=== PATIENT | male | born 1945 | race Native Hawaiian/Other Pacific Islander ===

== ENCOUNTER 2017-02-02 07:00 | Inpatient (IN) | payer MEDICARE ==
[2017-02-01 09:39] VITALS: BMI 24.9
[2017-02-02] MEDS ORDERED: Sodium Chloride 0.9% 20 ML IV ONE (08:17)
[2017-02-02] MEDS ORDERED: Morphine 1 mg/ml preservative-free Inj(Duramorph) ONE (08:17)
[2017-02-02] MEDS ORDERED: Bupivacaine 0.5% Inj(30mL) ONE (08:17)
[2017-02-02] MEDS ORDERED: EPINEPHrine 1 mg/ml (1:1000) Inj ONE (08:17)
[2017-02-02] MEDS ORDERED: Propofol 10 mg/ml Inj (20 ML) ONE ×2 (08:37→11:52)
[2017-02-02] MEDS ORDERED: Succinylcholine 200 mg/10 ml Inj IV ONE (08:38)
[2017-02-02] MEDS ORDERED: Vecuronium 10 mg Inj ONE (08:38)
[2017-02-02] MEDS ORDERED: Midazolam 2 MG/2 ML VIAL ONE (08:38)
[2017-02-02] MEDS ORDERED: ePHEDrine 50 mg/ml Inj ONE (08:38)
[2017-02-02] MEDS ORDERED: Phenylephrine 10 mg/ml Inj ONE (08:40)
[2017-02-02] MEDS ORDERED: Lactated Ringer's 1,000 ML IV ONE ×3 (08:45→14:30)
[2017-02-02] MEDS ORDERED: Esmolol 100 mg/10ml Inj IV ONE (10:52)
[2017-02-02] MEDS ORDERED: EPINEPHrine 1 mg/ml (1:1000) Inj IV ONE ×2 (11:02→11:30)
[2017-02-02] MEDS ORDERED: Bupivacaine 0.5% 50 ML IJ ONE ×2 (11:02→11:30)
[2017-02-02] MEDS ORDERED: Morphine 5 mg/10 ml preservative-free Inj(Duramorph) INJ ONE ×2 (11:02→11:30)
[2017-02-02] MEDS ORDERED: Sodium Chloride 0.9% Inj (10mL) IV ONE ×2 (11:03→11:30)
[2017-02-02] MEDS ORDERED: Neostigmine Methylsulfate 3mg/3ml Syringe IV ONE (11:33)
--- NOTE | 2017-02-02 12:17 | PCM.SURG1 ---
Surgeon's Initial Post Op Note - Surgeon's Notes Surgeon: René Haque MD Environmental Services Worker: Kevon Jeff PA-C, Joselin CALIX Type of Anesthesia: General Endo Pre-Operative Diagnosis: Right Knee Osteoarthritis Operative Findings: See op report Post-Operative Diagnosis: Same as pre-op dx Operation Performed: Right TKR Specimen/Specimens Removed: Right knee bone and soft tissue Estimated Blood Loss: EBL {In ML}: 100 Date of Surgery/Procedure: 02/02/17 Time of Surgery/Procedure: 10:30
[2017-02-02] MEDS ORDERED: HYDROmorphone 0.5 mg/0.5 ml ISec ONE (12:32)
[2017-02-02] MEDS ORDERED: HYDROmorphone 0.5 mg/0.5 ml ISec IVP PRN (12:33)
[2017-02-02] MEDS ORDERED: Lactated Ringer's 1,000 ML IV SCH (12:33)
[2017-02-02] MEDS ORDERED: Oxycodone/Acetaminophen 5/325 mg Tab PO PRN ×2 (12:38→14:41)
--- NOTE | 2017-02-02 13:34 | RAD ---
PROCEDURE: Right Knee Radiographs. HISTORY: post op RTKR COMPARISON: None. FINDINGS: BONES: Right total knee replacement. Prosthesis intact and in grossly normal alignment. JOINTS: As above JOINT EFFUSION: None. OTHER FINDINGS: Postoperative changes in soft tissues about the knee. Anterior cutaneous paco. IMPRESSION: Right total knee replacement.
[2017-02-02] MEDS ORDERED: ceFAZolin 1 GM in Sodium Chloride 0.9% 100 ML IVPB ONE (18:30)
[2017-02-02] MEDS: Lactated Ringer's 1,000 ML IV SCH ×2 (18:36→23:00)
[2017-02-02] MEDS: oxyCODONE 10 mg ER Tab (oxyCONTIN) PO SCH (21:25)
[2017-02-03] MEDS ORDERED: ceFAZolin 1 GM in Sodium Chloride 0.9% 100 ML IVPB ONE (02:30)
[2017-02-03] MEDS: Lactated Ringer's 1,000 ML IV SCH ×2 (08:26→21:02)
[2017-02-03] MEDS: oxyCODONE 10 mg ER Tab (oxyCONTIN) PO SCH ×2 (08:29→20:58)
[2017-02-03] MEDS: Pantoprazole 40 mg EC Tab PO SCH (08:30)
[2017-02-03] MEDS ORDERED: Morphine 4 MG/ML VIAL IVP PRN (09:45)
[2017-02-03] MEDS ORDERED: Enoxaparin 30 mg Syringe SC SCH (10:00)
[2017-02-03 10:27] LABS: BASO % 0.2 % (0.0-2.0); EOS % 0.1 % (0.0-4.0); HEMOGLOBIN 10.9 g/dL (12.0-18.0); LYMPH # 0.6 K/uL (1.0-4.3); LYMPH % 7.5 % (20.0-40.0); MEAN CELL VOLUME 87.3 fl (80.0-94.0); MEAN CORPUSCULAR HEMOGLOBIN 29.5 pg (27.0-31.0); MEAN CORPUSCULAR HGB CONC 33.8 g/dL (33.0-37.0); MEAN PLATELET VOLUME 8.5 fl (7.2-11.7); MONO % 12.3 % (0.0-10.0); NEUT # 6.5 K/uL (1.8-7.0); NEUT % 79.9 % (50.0-75.0); NRBC % 0.1 % (0.0-0.0); PLATELET COUNT 171 K/uL (130-400); RED CELL DISTRIBUTION WIDTH 14.4 % (11.5-14.5); WHITE BLOOD COUNT 8.1 K/uL (4.8-10.8)
[2017-02-03 10:38] LABS: BLOOD UREA NITROGEN 9 mg/dl (9-20); CALCIUM 8.7 mg/dL (8.4-10.2); GFR AFRICAN-AMERICAN > 60; GFR NON-AFRICAN AMERICAN > 60
--- NOTE | 2017-02-03 10:40 | CP.PCM.PN ---
Subjective - Date & Time of Evaluation Date of Evaluation: 02/03/17 Time of Evaluation: 08:30 - Subjective Subjective: S/P RTKR POD#1 Pt seen and examined at bedside, comfortable in bed Pt denies any current c/o right knee pain, currently well controlled with pain meds Pt denies SOB, chest pain, N/V/D, numbness/tingling of RLE Objective - Vital Signs/Intake and Output Vital Signs (last 24 hours): Temp Pulse Resp BP Pulse Ox 99 F 87 20 137/77 98 02/03/17 08:10 02/03/17 08:10 02/03/17 08:10 02/03/17 08:10 02/03/17 08:10 - Medications Medications: Current Medications Aspirin (Aspirin) 325 mg PO BID [facility] Last Admin: 02/03/17 10:12 Dose: 325 mg Celecoxib (Celebrex) 200 mg PO Q12 [facility] Last Admin: 02/03/17 08:26 Dose: 200 mg Lactated Ringer's (Lactated Ringer's) 1,000 mls @ 100 mls/hr IV .Q10H [facility] Last Admin: 02/03/17 08:26 Dose: Not Given Ketorolac Tromethamine (Toradol) 15 mg IM Q8 [facility] Stop: 02/04/17 09:01 Last Admin: 02/03/17 08:26 Dose: Not Given Morphine Sulfate (Morphine) 2 mg IVP Q4 PRN PRN Reason: Pain, severe (8-10) Ondansetron HCl (Zofran Inj) 4 mg IVP Q6 PRN PRN Reason: Nausea/Vomiting Oxycodone HCl (Oxycontin Extended Release Tab) 10 mg PO Q12 [facility] Stop: 02/16/17 21:01 Last Admin: 02/03/17 08:29 Dose: 10 mg Oxycodone/Acetaminophen (Percocet 5/325 Mg Tab) 2 tab PO Q4 PRN PRN Reason: Pain, moderate (4-7) Stop: 02/05/17 12:39 Oxycodone/Acetaminophen (Percocet 5/325 Mg Tab) 1 tab PO Q4 PRN PRN Reason: pain 4-6 Stop: 02/05/17 14:42 Pantoprazole Sodium (Protonix Ec Tab) 40 mg PO DAILY [facility] Last Admin: 02/03/17 08:30 Dose: 40 mg - Labs Labs: 02/03/17 09:50 - Constitutional Appears: Well, No Acute Distress - Respiratory Exam Respiratory Exam: Clear to Ausculation Bilateral, NORMAL BREATHING PATTERN - Cardiovascular Exam Cardiovascular Exam: REGULAR RHYTHM, RRR - Extremities Exam Additional comments: RLE: Knee dresisng C/D/I Calves soft and nontender b/l N/V intact distally Distal pulses wnl Assessment and Plan - Assessment and Plan (Free Text) Assessment: 71 yo M s/p RTKR POD#1 Plan: 71 yo M s/p RTKR POD#1 Pain Control DVT ppx- continue aspirin 325mg BID [facility] Spirometer PT/OT- WBAT RLE F/U labs Discussed with Dr. Haque
--- NOTE | 2017-02-03 11:35 | CP.PCM.HP ---
History of Present Illness - History of Present Illness History of Present Illness: 71 y/o male with a PMHx of osteoarthritis. Admitted for RTKR surgery. S/P RTKR POD #1. Denies PMHx of HTN, DM, Asthma, COPD, CAD, cancer. No medical complaints at this time. Denies fever/chills, headaches, visual changes, CP/SOB/ Palpitations, N/V/D/C, urinary symptoms. Denies BM today, reports +flatus, pain controlled. Present on Admission - Present on Admission Any Indicators Present on Admission: No Review of Systems - Constitutional Constitutional: As Per HPI Past Patient History - Past Medical History & Family History Past Medical History?: Yes - Past Social History Smoking Status: Never Smoked Alcohol: None Drugs: Denies Home Situation {Lives}: With Family Domestic Violence: Negative - CARDIAC Hx Cardiac Disorders: No - PULMONARY Hx Respiratory Disorders: No - NEUROLOGICAL Hx Neurological Disorder: No - HEENT Hx HEENT Problems: No - RENAL Hx Chronic Kidney Disease: No - ENDOCRINE/METABOLIC Hx Endocrine Disorders: No - HEMATOLOGICAL/ONCOLOGICAL Hx Blood Disorders: No - INTEGUMENTARY Hx Dermatological Problems: No - MUSCULOSKELETAL/RHEUMATOLOGICAL Hx Musculoskeletal Disorders: Yes Hx Arthritis: Yes Hx Osteoarthritis: Yes - GASTROINTESTINAL Hx Gastrointestinal Disorders: Yes Hx Ulcer: Yes - GENITOURINARY/GYNECOLOGICAL Hx Genitourinary Disorders: No - PSYCHIATRIC Hx Psychophysiologic Disorder: No - SURGICAL HISTORY Hx Surgeries: Yes Other/Comment: SPINE SX - ANESTHESIA Hx Anesthesia: Yes Hx Anesthesia Reactions: No Hx Malignant Hyperthermia: No Has any member of the family had a problem w/ anesthesia?: No Meds Allergies/Adverse Reactions: Allergies Allergy/AdvReac Type Severity Reaction Status Date / Time No Known Allergies Allergy Verified 02/02/17 07:25 Physical Exam - Constitutional Appears: Well, Non-toxic, No Acute Distress - Eye Exam Eye Exam: EOMI. absent: Conjunctival injection, Scleral icterus Pupil Exam: PERRL - ENT Exam ENT Exam: Mucous Membranes Moist - Neck Exam Neck exam: Positive for: Full Rom. Negative for: Lymphadenopathy, Tenderness - Respiratory Exam Respiratory Exam: Clear to Auscultation Bilateral, NORMAL BREATHING PATTERN. absent: Rales, Rhonchi, Wheezes - Cardiovascular Exam Cardiovascular Exam: REGULAR RHYTHM, RRR, +S1, +S2. absent: Tachycardia, Gallop , JVD, Rubs, Systolic Murmur - GI/Abdominal Exam GI & Abdominal Exam: Normal Bowel Sounds, Soft. absent: Diminished Bowel Sounds , Distended, Firm, Guarding, Hernia, Tenderness - Extremities Exam Extremities exam: Positive for: normal capillary refill, normal inspection, pedal pulses present. Negative for: calf tenderness, pedal edema Additional comments: right leg s/p TKR. Pedal pulses intact, normal cap refill, sensation and gross motor intact. Bandage clean and dry. - Back Exam Back exam: NORMAL INSPECTION. absent: CVA tenderness (L), CVA tenderness (R) - Neurological Exam Neurological exam: Alert, CN II-XII Intact, Oriented x3, Reflexes Normal - Psychiatric Exam Psychiatric exam: Normal Affect, Normal Mood - Skin Skin Exam: Dry, Intact Results - Vital Signs Recent Vital Signs: Last Vital Signs Temp 99 F 02/03/17 08:10 Pulse 87 02/03/17 08:10 Resp 20 02/03/17 08:10 BP 137/77 02/03/17 08:10 Pulse Ox 98 02/03/17 08:10 - Labs Result Diagrams: 02/03/17 09:50 02/03/17 09:50 Labs: Laboratory Results - last 24 hr 02/03/17 02/03/17 09:50 09:50 WBC 8.1 RBC 3.70 L Hgb 10.9 L Hct 32.3 L MCV 87.3 MCH 29.5 MCHC 33.8 RDW 14.4 Plt Count 171 MPV 8.5 Neut % (Auto) 79.9 H Lymph % (Auto) 7.5 L Jackson % (Auto) 12.3 H Eos % (Auto) 0.1 Baso % (Auto) 0.2 Neut # 6.5 Lymph # 0.6 L Jackson # 1.0 H Eos # 0.0 Baso # 0.0 Sodium 134 Potassium 4.3 Chloride 99 Carbon Dioxide 27 Anion Gap 12 BUN 9 Creatinine 0.9 Est GFR ( Amer) > 60 Est GFR (Non-Af Amer) > 60 Random Glucose 136 H Calcium 8.7 Assessment & Plan (1) Status post total knee replacement, right Assessment and Plan: POD#1 pain control physical therapy regular diet pt eval/tx for transfer to rehab Status: Acute Priority: Medium
[2017-02-03 11:49] LABS: BANDS 1 % (0-2); LYMPHOCYTE 9 % (20-50); MONOCYTE 15 % (0-10); NEUTROPHIL 72 % (42-75); REACTIVE LYMPHOCYTES 3 % (0-0); TOTAL CELLS COUNTED 100
[2017-02-03 11:50] LABS: HYPOCHROMIC SLIGHT; LARGE PLATELETS PRESENT; PLATELET ESTIMATE NORMAL (NORMAL)
[2017-02-04 05:26] LABS: BASO % 0.4 % (0.0-2.0); EOS # 0.3 K/uL (0.0-0.7); EOS % 2.9 % (0.0-4.0); HEMOGLOBIN 9.4 g/dL (12.0-18.0); LYMPH # 0.9 K/uL (1.0-4.3); LYMPH % 9.4 % (20.0-40.0); MEAN CELL VOLUME 87.2 fl (80.0-94.0); MEAN CORPUSCULAR HEMOGLOBIN 29.2 pg (27.0-31.0); MEAN CORPUSCULAR HGB CONC 33.5 g/dL (33.0-37.0); MEAN PLATELET VOLUME 8.7 fl (7.2-11.7); MONO # 1.1 K/uL (0.0-0.8); MONO % 12.1 % (0.0-10.0); NEUT # 7.1 K/uL (1.8-7.0); NEUT % 75.2 % (50.0-75.0); RBC 3.21 Mil/uL (4.40-5.90); RED CELL DISTRIBUTION WIDTH 14.7 % (11.5-14.5); WHITE BLOOD COUNT 9.4 K/uL (4.8-10.8)
[2017-02-04 05:31] LABS: BLOOD UREA NITROGEN 13 mg/dl (9-20); CALCIUM 8.6 mg/dL (8.4-10.2); GFR AFRICAN-AMERICAN > 60; GFR NON-AFRICAN AMERICAN 60
[2017-02-04 08:06] VITALS: BP 125/76; PULSE 69; RESP 20; TEMP 98.1; O2SAT 96
--- NOTE | 2017-02-04 08:30 | CP.PCM.PN ---
Subjective - Date & Time of Evaluation Date of Evaluation: 02/04/17 Time of Evaluation: 07:30 - Subjective Subjective: pt seen and examined at bedside. S/P TRKR POD#1. No acute events overnight. Lying in bed comfortably, NAD. Pain controlled with medications. Tolerating PO intake w/o issue. +flatus/-bm. Denies fever/chills, headaches, CP/SOB/ Palpitations, N/V/D, urinary symptoms, numbness/tingling. Objective - Vital Signs/Intake and Output Vital Signs (last 24 hours): Temp Pulse Resp BP Pulse Ox 98.1 F 69 20 125/76 96 02/04/17 08:05 02/04/17 08:05 02/04/17 08:05 02/04/17 08:05 02/04/17 08:05 - Medications Medications: Current Medications Aspirin (Aspirin) 325 mg PO BID [facility] Last Admin: 02/03/17 16:12 Dose: 325 mg Celecoxib (Celebrex) 200 mg PO Q12 [facility] Last Admin: 02/03/17 20:57 Dose: 200 mg Lactated Ringer's (Lactated Ringer's) 1,000 mls @ 100 mls/hr IV .Q10H [facility] Last Admin: 02/03/17 21:02 Dose: Not Given Ketorolac Tromethamine (Toradol) 15 mg IM Q8 [facility] Stop: 02/04/17 09:01 Last Admin: 02/04/17 01:37 Dose: Not Given Morphine Sulfate (Morphine) 2 mg IVP Q4 PRN PRN Reason: Pain, severe (8-10) Ondansetron HCl (Zofran Inj) 4 mg IVP Q6 PRN PRN Reason: Nausea/Vomiting Oxycodone HCl (Oxycontin Extended Release Tab) 10 mg PO Q12 [facility] Stop: 02/16/17 21:01 Last Admin: 02/03/17 20:58 Dose: 10 mg Oxycodone/Acetaminophen (Percocet 5/325 Mg Tab) 2 tab PO Q4 PRN PRN Reason: Pain, moderate (4-7) Stop: 02/05/17 12:39 Last Admin: 02/03/17 16:12 Dose: 2 tab Oxycodone/Acetaminophen (Percocet 5/325 Mg Tab) 1 tab PO Q4 PRN PRN Reason: pain 4-6 Stop: 02/05/17 14:42 Pantoprazole Sodium (Protonix Ec Tab) 40 mg PO DAILY [facility] Last Admin: 02/03/17 08:30 Dose: 40 mg - Labs Labs: 02/04/17 04:20 02/04/17 04:20 - Constitutional Appears: Well, Non-toxic, No Acute Distress - Eye Exam Eye Exam: EOMI Pupil Exam: PERRL - ENT Exam ENT Exam: Mucous Membranes Moist - Respiratory Exam Respiratory Exam: Clear to Ausculation Bilateral, NORMAL BREATHING PATTERN. absent: Rales, Rhonchi, Wheezes - Cardiovascular Exam Cardiovascular Exam: REGULAR RHYTHM, RRR, +S1, +S2. absent: Gallop, JVD, Rubs, Murmur - GI/Abdominal Exam GI & Abdominal Exam: Soft, Normal Bowel Sounds. absent: Distended, Firm, Guarding, Tenderness, Organomegaly, Rebound - Extremities Exam Extremities Exam: absent: Pedal Edema Additional comments: right knee s/p TKR. Dressing removed, moderate edema surrounding knee. Distal pulses intact, sensation intact. Mild tenderness to palpation. Wound site C/D/I. - Neurological Exam Neurological Exam: Alert, Awake, CN II-XII Intact, Oriented x3 - Psychiatric Exam Psychiatric exam: Normal Affect, Normal Mood Assessment and Plan (1) Status post total knee replacement, right Assessment & Plan: POD#1 continue current mangement with pain control and PT pt to be discharged to [facility] today for rehab Status: Acute (2) DVT prophylaxis Assessment & Plan: aspirin 325mg Status: Acute
[2017-02-04] MEDS: oxyCODONE 10 mg ER Tab (oxyCONTIN) PO SCH (08:42)
[2017-02-04] MEDS: Pantoprazole 40 mg EC Tab PO SCH (08:43)
--- NOTE | 2017-02-04 10:09 | CP.PCM.DIS ---
Provider - Provider Date of Admission: 02/02/17 12:43 Attending physician: Yosvany Dooley MD Primary care physician: Enmanuel Daniels MD Time Spent in preparation of Discharge (in minutes): 35 Diagnosis - Discharge Diagnosis (1) Status post total knee replacement, right Status: Acute Priority: Medium Hospital Course - Lab Results Lab Results: Most Recent Lab Values WBC 9.4 K/uL (4.8-10.8) 02/04/17 04:20 RBC 3.21 Mil/uL (4.40-5.90) L 02/04/17 04:20 Hgb 9.4 g/dL (12.0-18.0) L 02/04/17 04:20 Hct 28.0 % (35.0-51.0) L 02/04/17 04:20 MCV 87.2 fl (80.0-94.0) 02/04/17 04:20 MCH 29.2 pg (27.0-31.0) 02/04/17 04:20 MCHC 33.5 g/dL (33.0-37.0) 02/04/17 04:20 RDW 14.7 % (11.5-14.5) H 02/04/17 04:20 Plt Count 140 K/uL (130-400) 02/04/17 04:20 MPV 8.7 fl (7.2-11.7) 02/04/17 04:20 Neut % (Auto) 75.2 % (50.0-75.0) H 02/04/17 04:20 Lymph % (Auto) 9.4 % (20.0-40.0) L 02/04/17 04:20 Mckean % (Auto) 12.1 % (0.0-10.0) H 02/04/17 04:20 Eos % (Auto) 2.9 % (0.0-4.0) 02/04/17 04:20 Baso % (Auto) 0.4 % (0.0-2.0) 02/04/17 04:20 Neut # 7.1 K/uL (1.8-7.0) H 02/04/17 04:20 Lymph # 0.9 K/uL (1.0-4.3) L 02/04/17 04:20 Mckean # 1.1 K/uL (0.0-0.8) H 02/04/17 04:20 Eos # 0.3 K/uL (0.0-0.7) 02/04/17 04:20 Baso # 0.0 K/uL (0.0-0.2) 02/04/17 04:20 Neutrophils % (Manual) 72 % (42-75) 02/03/17 09:50 Band Neutrophils % 1 % (0-2) 02/03/17 09:50 Lymphocytes % (Manual) 9 % (20-50) L 02/03/17 09:50 Reactive Lymphs % 3 % (0-0) H 02/03/17 09:50 Monocytes % (Manual) 15 % (0-10) H 02/03/17 09:50 Platelet Estimate Normal (NORMAL) 02/03/17 09:50 Large Platelets Present 02/03/17 09:50 Hypochromasia (manual) Slight 02/03/17 09:50 Sodium 135 mmol/l (132-148) 02/04/17 04:20 Potassium 4.5 MMOL/L (3.6-5.0) 02/04/17 04:20 Chloride 100 mmol/L (98-107) 02/04/17 04:20 Carbon Dioxide 30 mmol/L (22-30) 02/04/17 04:20 Anion Gap 10 (10-20) 02/04/17 04:20 BUN 13 mg/dl (9-20) 02/04/17 04:20 Creatinine 1.2 mg/dL (0.8-1.5) 02/04/17 04:20 Est GFR ( Amer) > 60 02/04/17 04:20 Est GFR (Non-Af Amer) 60 02/04/17 04:20 Random Glucose 110 mg/dL (75-110) 02/04/17 04:20 Calcium 8.6 mg/dL (8.4-10.2) 02/04/17 04:20 Blood Type O POSITIVE 02/02/17 07:25 Blood Type Confirm O POSITIVE 02/02/17 08:36 Antibody Screen Negative 02/02/17 07:25 BBK History Checked No verified bt 02/02/17 07:25 - Hospital Course Hospital Course: 71 y/o male with a PMHx remarkable for Knee OA had elective RTKR. Pt tolerated the procedure well. Pt began PT in house. Pain was controlled with medications, tolerated PO intake w/o difficulty. After an uneventful hospital stay pt was discharged to [facility] in stable condition. Discharge Exam - Eye Exam Eye Exam: EOMI. absent: Conjunctival injection, Scleral icterus Pupil Exam: PERRL - ENT Exam ENT Exam: Mucous Membranes Moist - Neck Exam Neck exam: Normal Inspection - Respiratory Exam Respiratory Exam: Clear to PA & Lateral, NORMAL BREATHING PATTERN, UNREMARKABLE - Cardiovascular Exam Cardiovascular Exam: REGULAR RHYTHM, RRR, +S1, +S2. absent: JVD - GI/Abdominal Exam GI & Abdominal Exam: Normal Bowel Sounds, Soft, Unremarkable - Extremities Exam Extremities exam: normal inspection, pedal pulses present Additional comments: right knee: s/p TKR, edema, tenderness, decreased erythema. Wound site C/D/I. Pedal pulses intact, 2+ senstation and gross motor intact - Neurological Exam Neurological exam: Alert, CN II-XII Intact, Oriented x3, Reflexes Normal - Psychiatric Exam Psychiatric exam: Normal Affect, Normal Mood - Skin Skin Exam: Dry, Intact, Normal Color Discharge Plan - Follow Up Plan Condition: GOOD Disposition: HOME/ ROUTINE Referrals: Enmanuel Daniels MD [Primary Care Provider] -
--- NOTE | 2017-02-11 16:17 | OP ---
Date of Procedure: 02/02/17 ATTENDING MAT PUNCHER: LEIGH GARG MD: ANDRIY ZHOU PREOP DIAGNOSIS: RT KNEE OSTEOARHTRITIS POST OPERATIVE DIAGNOSIS: RT KNEE OSTEOARHTRITIS PROCEDURE: RT TOTAL KNEE REPLACEMENT IMPLANT SIZE 3 TIBIAL BASE PLATE, SIZE 3 FEMUR, 9 MM POLYETHYLENE INSERT, 32 MM PATELLA ANESTHESIA TYPE : GENERAL EBL: 50CC COMPLICATION: NONE HX: PT IS 71 Y/O MALE WITH PROGRESSIVE RT KNEE PAIN THAT HAS BEEN REFRACTORY TO EXTENSIVE RESERVICE MANAGEMENT ON PHYSICAL THERAPY AND CORTINSONE INJECTIONS. X- RAYS HAS SHOWN ADVANCED OSTEOARHTRITIS, PT WAS SEEKING A TOTAL KNEE REPLACEMENT. I HAD REVIEWED PT'S X-RAY AND HE WAS A CANDIDATE FOR TOTAL KNEE REPLACEMENT. I REVIEWED THE RISKS AND BENEFITS OF THE SURGERY WITH PATIENT IN DETAIL, THE RISK INCLUDED BUT NOT LIMITED TO BLEEDING, INFECTION, NERVE VESSEL DAMAGE, CONTINUED PAIN, NEED FOR FURTHER SURGERY, STIFFNESS AMONG OTHERS. PT FULLY UNDERSTOOD THE RISKS AND BENEFITS AND OPTED TO PROCEED WITH THE SURGERY. PROCEDURE: ON THE DAY OF THE SURGERY PT WAS ADMITTED TO PRE OP HOLDING AREA. IN LATERALITY SHE WAS COMPLETELY COVERING RT KNEE TO CORRECT OPERATIVE SITE. PT'S RT KNEE WAS MARKED AND FORM CONSENT WAS SIGNED. ONCE AGAIN EXPLAINING RISK AND BENEFITS OF THE SURGERY TO THE PT IN DETAIL. AFTERWARDS, PT WAS BROUGHT INTO OPERATING ROOM TABLE, HE WAS GIVEN GENERAL ANESTHESIA. THE RT KNEE WAS DRAPED AND PREPPED IN STANDARD STERILE MANNER FIRST THE TIME OUT WAS COMPLETED CONFIRMING PT'S RT KNEE TO BE CORRECT OPERATIVE SITE. EXAMINED UNDER ANESTHESIA: NO EFFUSION, ROM IN 3, 220 STABLE NORMAL PUSILE TRATING AFTERWARDS USING AN ESMARK. ESMARK WAS USED TO INSANGUINATE THE EXTREMITY. THE TURNING GOOD WWAS INFLATED TO 200, 350 MM OF MERCURY 300 MM OF MERCURY, FIRST USING A 10 BLDE SKIN INCISION WAS MADE UNTIL THE EXTENSIVE MECHANISM WAS IDENTIFIED AND WAS MARKED FOR LATER REPAIR. THEN USING A FRESH BLADE MEDIAL POPLITIAL ARTHROTOMY WAS PERFOMRED THE KNEE WAS EXPOISED ALL THE MENISCI WAS REMOVED THERE WAS ADVANCED ARTHRITIS USING A TIBIAL CUTTING GUIDE. THE STARTED TIBIAL CUT WAS MADE AND IT WAS NOTED A 3 MM TIBIAL BASE PLATE WAS SIFFICIENT FOR THIS PATIENT. NEXT ATTENTION WAS GIVEN ONTO THE DISTANT FEMORAL CUT USING INTERMESURAL MEDULLARY GUIDE STARDARD DISTAL FEMORAL CUT WAS MADE KNEE WAS BORUGHT INTO EXTENSION USING A KNIFES SPACER BLOCK, PROVIDED FULL EXTENSION AND SYMMETRIC VARUS VALGUS BALANCING. NEXT, USING THE SIZING GUIDE WITH 3 DIRECTIONAL ROTATION , THE PIN HOLDS FOR SIZE 3 FEMUR WERE DRILLED AND THE ANTERIOR AND POSTERIOR AND CHAMPFER CUTS WERE MADE ON THE SIZE 3 TRIAL WAS PLACED ONTO THE FEMUR. A 9 MM POLYETHYLENE INSET WAS PLACED AN IT WAS NOTED THAT THE PT HAS FULL EXTENSION , FLEXION 125 DEGREES, SOCORRO FLEXION IS STABILITY. STABLE TO VARUS VALUS THRUST AND BROUGHT TO FULL ETENSION AND FLEXION. NEXT THE PATELLA CUT WAS MADE AND THE 32 MM PATELLA WAS PROPPED FOR THIS PATIENT AND THE DRILL HOLES WERE MADE ALL THE TRIAL IMPLANTS WERE REMOVED. THE SARA IMPLANTS WERE OPENED IN THE BACK TABLE. ALL THE BONY CUT SURFACES WERE PULSE LAVAGED REMOVE ALL THE DEBRI FROM BLOOD AND BONE, THE CEMENT WAS MIXED. FIRST THE TIBIAL BASE PLATE WAS CEMENTED NEXT , FEMORAL COMPOENT WAS CEMENTED AND FINALLY PATELLA COMPONENT WAS CEMENTED. THE 9 MM POLYETHELYENE LINER WAS SECURED IN THE TIBIAL BASE PLATE AND THE KNEE WAS REDUCED. CEMENT WAS ALLOWED TO HARDEN. ONCE THE CEMENT WAS HARDENED THE KNEE WAS TAKEN AND FINALLY MOTIONED RESPOND TO HAVE SIMILAR RESULTS WITH TRIALS USING THE COCKTAIL SOLUTION THE KNEE WAS INJECTED. AFTER WARDS THE WOUND WAS COPIOUSLY IRRIGATED TO REMOVE ALL THE DEBRI. THE ARTHOROTOMY WAS CLOSED USING HEAVY SUTURES. THE SKIN WAS CLOSED IN THE STANDARD MANNER. PTS STERILE DRESSING WAS APPLIED. PT WAS EXTUBATED. HE WAS TRANSFERRED TO THE STRETCHER AND TAKE TO THE RECOVERY ROOM. THERE WERE NO COMPLICATIONS OF SURGERY. PINO ZHOU WAS THE CERTIFIED PHYSICIAN MAT PUNCHER WHO WAS PRESENT FOR THE ENTIRIETY OF THE CASE. HER PARTICIPATION WAS CRUCIAL IN PATIENT POSITIONING. RETRACTION OF CRITICAL NEUROVASCULAR STRUCTURE ACCEPTABLE COMPLETION AFTER SURGERY René Haque MD
== END 2017-02-04 15:37 | DRG 470 ==
LOC: H.OPSURG 07:00 → H.MEDSURG1 12:43
PROVIDERS: ADMIT Family Medicine; ATTEND Family Medicine
PROC: 0SRC0J9 Replacement of Right Knee Joint with Synthetic Substitute, Cemented, Open Approach (ICD-10-PCS; principal; 2017-02-02 09:45)
DX: M17.11 Unilateral primary osteoarthritis, right knee (principal); J44.9 Chronic obstructive pulmonary disease, unspecified; E11.9 Type 2 diabetes mellitus without complications; I10 Essential (primary) hypertension; I25.10 Atherosclerotic heart disease of native coronary artery without angina pectoris; J45.909 Unspecified asthma, uncomplicated